=== PATIENT | female | born 1995 | race African-American/Black ===

== ENCOUNTER 2022-04-16 02:47 | Emergency (ER) | payer MEDICAID ==
[~2022-04-16] VITALS: Ht 167.6 cm; Wt 94.3 kg
[2022-04-16 02:52] VITALS: BP 118/64
[2022-04-16] MEDS ORDERED: predniSONE 20 MG TAB PO ONE (04:05)
[2022-04-16] MEDS ORDERED: DIPH25TA53 PO (04:16)
[2022-04-16] MEDS ORDERED: PRED20TA5 PO (04:16)
[2022-04-16 05:07] VITALS: BP 118/64
== END 2022-04-16 05:07 | disposition home or self-care (01) ==
LOC: MED 02:47
DX: L50.0 Allergic urticaria (principal); Z98.890 Other specified postprocedural states; Z79.899 Other long term (current) drug therapy
CPT/HCPCS: 99283; J7512; Q0163